=== PATIENT | female | born 1975 | race Caucasian/White ===

== ENCOUNTER → 2017-02-10 | Outpatient (CLI) | payer OTHER ==
--- NOTE | 2017-02-10 16:30 | MAMMOGRAPHY REPORT ---
BILATERAL DIGITAL SCREENING MAMMOGRAM TOMOSYNTHESIS WITH CAD: 02/10/2017 CLINICAL HISTORY: Routine screening. Patient has no complaints. TECHNIQUE: Breast tomosynthesis in addition to standard 2D mammography was performed. Current study was also evaluated with a Computer Aided Detection (CAD) system. COMPARISON: Comparison is made to exams dated: 02/05/2016 mammogram, 02/13/2015 ultrasound, 02/13/2015 mammogram, 01/30/2015 mammogram, 12/02/2013 mammogram, and 11/23/2012 mammogram - [facility]. BREAST COMPOSITION: There are scattered areas of fibroglandular density in both breasts. FINDINGS: No suspicious masses, calcifications, or areas of architectural distortion are noted in e ither breast. There has been no significant interval change compared to prior exams. IMPRESSION: ACR BI-RADS CATEGORY 1: NEGATIVE There is no mammographic evidence of malignancy. A 1 year screening mammogram is recommended. The p atient will receive written notification of the results. Approximately 10% of breast cancers are not detected with mammography. A negative mammographic repor t should not delay biopsy if a clinically suggestive mass is present. Kristen Hernandez M.D. ah/:02/10/2017 16:00:50 [employer] Registrar: Yris MORENO(R)(M), [facility] letter sent: Normal 1/2 BI-RADS Code: ACR BI-RADS Category 1: Negative
== END | disposition home or self-care (01) ==
LOC: C.MAMM 14:09
PROVIDERS: ATTEND Family Medicine
DX: Z12.31 Encounter for screening mammogram for malignant neoplasm of breast (principal)

== ENCOUNTER 2017-11-05 08:28 | Emergency (ER) | payer OTHER ==
[~2017-11-05] VITALS: Ht 162.6 cm; Wt 75.3 kg
[2017-11-05 08:34] VITALS: TEMP 36.9; Ht 162.6 cm; Wt 75.3 kg
[2017-11-05] MEDS ORDERED: HYDROCODONE/ACETAMIN 5/325MG TAB PO STA (09:15)
[2017-11-05] MEDS ORDERED: LIDOCAINE HCL 2% JELLY 30 ML TUBE EXT ONE (09:15)
--- NOTE | 2017-11-05 09:19 | EMERGENCY ROOM VISIT NOTE ---
History Report prepared by Shalonda: Xavi Demarco Under the Supervision of: Dr. Edith Segal M.D. First contact with patient: 08:51 Chief Complaint: OTHER COMPLAINT Stated Complaint: VAGINAL- TX FOR YEAST History of Present Illness The patient is a 42 year old female who presents to the Emergency Room with complaints of constant, burning, ulcers and blisters to her vaginal area beginning three days ago. She currently rates her discomfort a 9/10 in severity. The patient states she was evaluated by her PCP for her current symptoms and was told it was a yeast infection. She reports she was given Diflucan and Monistat cream, but they are not helping. The patient notes she does not think it is a yeast infection because she is having blisters and ulcers. She states she has a history of hemorrhoids and does not know if that has anything to do with it. The patient denies a history of these symptoms before, and she denies any other symptoms. Source of History: patient Onset: three days ago Position: other (vaginal region) Symptom Intensity: 9/10 Quality: burning, other (ulcers and blisters) Timing: constant Review of Systems See HPI for pertinent positives & negatives. A total of 10 systems reviewed and were otherwise negative. Past Medical & Surgical Medical Problems: (1) No Known Active Medical Problems Family History Patient reports no known family medical history. Social History Smoking Status: Never Smoker Marital Status: Housing Status: lives with significant other Occupation Status: employed Current/Historical Medications Scheduled Valacyclovir Hcl (Valtrex), 1,000 MG PO BID Scheduled PRN Hydrocodone/Acetaminophen 5MG/325MG ([place] 5MG/325MG), 1 TABLET PO Q6 PRN for Pain Ranitidine (Zantac), 150 MG PO DAILY PRN for GI Upset Allergies Coded Allergies: BEE STING (Verified Allergy, Unknown, swelling (localized), 11/05/17) Physical Exam Vital Signs Date Time Temp Pulse Resp B/P (MAP) Pulse Ox O2 Delivery O2 Flow Rate FiO2 11/05/17 09:49 85 18 121/75 95 Room Air 11/05/17 08:34 36.9 102 18 126/87 100 Room Air Physical Exam Vital signs reviewed. General: Well-appearing 42 year old female, in no significant distress. HEENT: No scleral icterus, PERRLA, neck supple. Atraumatic. Cardiovascular: Regular rate and rhythm, no extra sounds. Pulmonary: Clear to auscultation bilaterally, normal work of breathing. Abdomen: Soft, nontender, nondistended, positive bowel sounds. Pelvic: Multiple labia ulcerations bilaterally. Mild erythema and pain upon palpation. Ulcerations extend form the clitoral diamond to the rectum with a milky white vaginal discharge. No cervical motion tenderness. Musculoskeletal: Atraumatic, no peripheral edema. Neurologic: Patient awake alert and oriented x 3 Skin: Warm, dry, no rash Medical Decision & Procedures Laboratory Results Test 11/05/17 09:10 Chlamydia trachomatis RNA NOT DETECTED (NOT DETECTED) Herpes Virus Source see note Herpes Simplex Virus I DNA (PCR) Detected (Not Detected) Herpes Simplex Virus II DNA (PCR) Not Detected (Not Detected) Neisseria gonorrhoeae RNA NOT DETECTED (NOT DETECTED) Date/Time Source Procedure Growth Status 11/05/17 09:10 Cervix Swab Trichomonas Preparation - Final Complete Laboratory results per my review. Medications Administered Medications (Trade) Dose Ordered Sig/Octavio Route Start Time Stop Time Status Last Admin Dose Admin Lidocaine HCl (Xylocaine Jelly 2%) 10 ml NOW ONCE EXT 11/05/17 09:15 11/05/17 09:19 DC 11/05/17 09:46 10 ML Acetaminophen/ Hydrocodone Bitart ([place] 5/325 Tab) 1 tab NOW STAT PO 11/05/17 09:15 11/05/17 09:19 DC 11/05/17 09:47 1 TAB Valacyclovir HCl (Valtrex Tab) 1,000 mg NOW ONCE PO 11/05/17 09:15 11/05/17 09:19 DC 11/05/17 09:46 1,000 MG ED Course 0859: Past medical records reviewed. The patient was evaluated in room B12B. A complete history and physical examination was performed. I discussed findings with the patient. She verbalized agreement of the treatment plan. The patient will be discharged home after she receives her medication. 0915: Ordered Valtrex Tab 1000mg PO, Hydrocodone Bitart/Acetaminophen 1 tab PO, Lidocaine HCl 10ml EXT Medical Decision The patient is a 42 year old female who presents to the ED with complaints of burning ulcerations and blisters to her vaginal region. Differentials include GC, chlamydia, herpes, bacterial vaginosis, trichomoniasis, contact vaginitis, yeast infection. This patient was evaluated and appeared to be in significant discomfort. A pelvic examination was performed and is concerning for herpes outbreak. Cultures were performed including viral PCR. There is no significant abnormality of the cervix appreciated. The patient was advised of the findings. She was placed on Valtrex 1 g twice a day, [place] as needed for severe pain. She is also given topical Xylocaine jelly and advised to see OB/ ACCOUNTING MACHINE OPERATOR as soon as possible. The patient is aware that cultures are pending. She will follow-up with her physician for reevaluation and return to the ER for worsening of symptoms or any medical concerns. Medication Reconcilliation Current Medication List: was personally reviewed by me Blood Pressure Screening Patient's blood pressure: Normal blood pressure Blood pressure disposition: Did not require urgent referral Impression Primary Impression: Genital labial ulcer Scribe Attestation The scribe's documentation has been prepared under my direction and personally reviewed by me in its entirety. I confirm that the note above accurately reflects all work, treatment, procedures, and medical decision making performed by me. Departure Information Dispostion Home / Self-Care Prescriptions Hydrocodone/Acetaminophen 5MG/325MG ([place] 5MG/325MG) Tab 1 TABLET PO Q6 Y for Pain, #20 TAB Prov: Edith Segal M.D. 11/05/17 Valacyclovir Hcl (VALTREX) 1 Gm Tab 1000 MG PO BID, #20 TAB Prov: Edith Segal M.D. 11/05/17 Referrals Jadyn Richard MD (PCP) Jessica Noguera M.D. Forms HOME CARE DOCUMENTATION FORM, IMPORTANT VISIT INFORMATION, WORK / SCHOOL INSTRUCTIONS Patient Instructions My [facility] Additional Instructions Diagnosis: Labial ulcerations Your vaginal cultures are pending. Valtrex 1000 mg twice daily for the next 10 days. Ibuprofen 600 mg every 6 hours as needed for pain with food. [place] one tablet every 6 hours as needed for severe pain. Do not drive or take Tylenol with this medication. Lidocaine 2% jelly topically 3 times daily as needed. Do not insert into the vagina. Follow-up with [employer]OCH[employer] DISORDERS COUNSELOR within the next several weeks for reevaluation. Please see [facility]ORD[facility] COUNSEL[facility] contact info below. Return to the emergency department for worsening of symptoms or any medical concerns.
[2017-11-05] MEDS ORDERED: RANI150T85 PO (09:24)
[2017-11-05] MEDS ORDERED: VALA1TAB2 PO (09:43)
[2017-11-05] MEDS ORDERED: HYDR-5688 PO (09:43)
[2017-11-05 09:49] VITALS: BP 121/75; PULSE 85; O2SAT 95
== END 2017-11-05 10:15 | disposition home or self-care (01) ==
LOC: C.EDB 08:32
DX: N76.6 Ulceration of vulva (principal); Z91.030 Bee allergy status